=== PATIENT | male | born 1945 | race Two or more races ===

== ENCOUNTER 2019-01-17 01:06 | Inpatient (IN) | payer OTHER ==
[~2019-01-17] VITALS: Ht 172.7 cm; Wt 128.4 kg
--- NOTE | 2019-01-17 01:12 | NUR ---
PT [id number] C/O DIZZINESS X 1 HR, +HEADACH, PER EMS PT HYPERTENSIVE SBP 190S. PT AXO4. RESPIRATIONS EVEN AND UNLABORED. PT PUT ON THE ORTHOPEDIC SHOE MAKER AND PULSE OX. PT DIZZY AT THIS MOMENT. PT HYPERTENSIVE ON THE MONITOR.
[2019-01-17] MEDS ORDERED: hydrALAZINE HCL IV 20 MG VIAL ONE (01:27)
[2019-01-17] MEDS ORDERED: MECLIZINE HCL 25 MG TABLET ONE (01:28)
[2019-01-17 01:29] LABS: BASOPHILS % (AUTO) 0.5 % (0.0-2.0); EOSINOPHILS % (AUTO) 0.8 % (0.0-6.0); HEMATOCRIT 46 % (39-51); HEMOGLOBIN 15.6 g/dL (13.5-17.5); LYMPHOCYTES # (AUTO) 1.5 /CMM (0.8-4.8); LYMPHOCYTES % (AUTO) 22.3 % (20.0-44.0); MEAN CORPUSCULAR HGB CONC 34 g/dl (31.0-36.0); MEAN CORPUSCULAR VOLUME 90 fL (80-96); MONOCYTES # (AUTO) 0.4 /CMM (0.1-1.30); MONOCYTES % (AUTO) 6.7 % (2.0-12.0); NEUTROPHILS # (AUTO) 4.6 /CMM (1.8-8.9); NEUTROPHILS % (AUTO) 69.7 % (43.0-81.0); PLATELET COUNT (AUTO) 175 /CMM (150-450); RED BLOOD CELL COUNT(AUTO) 5.07 MIL/uL (4.5-6.0); WHITE BLOOD COUNT (AUTO) 6.6 K/uL (4.3-11.0)
[2019-01-17] MEDS ORDERED: MECLIZINE HCL 12.5 MG TABLET PO ONE (01:30)
[2019-01-17] MEDS ORDERED: hydrALAZINE HCL IV 20 MG VIAL IV ONE ×2 (01:30→02:00)
[2019-01-17 01:41] LABS: ALANINE AMINOTRANSFERASE 23 U/L (12-78); ALBUMIN 3.7 g/dL (3.4-5.0); ALKALINE PHOSPHATASE 92 U/L (46-116); ASPARTATE AMINOTRANSFERASE 14 U/L (15-37); BILIRUBIN,DIRECT 0.2 mg/dL (0.0-0.2); BILIRUBIN,TOTAL 0.6 mg/dL (0.2-1.0); CALCIUM, SERUM 9.1 mg/dL (8.5-10.1); CARBON DIOXIDE 35 mmol/L (21-32); CHLORIDE 107 mmol/L (98-107); GLUCOSE 178 mg/dL (74-106); POTASSIUM 4.5 mmol/L (3.5-5.1); SODIUM SERUM 144 mmol/L (136-145); TOTAL PROTEIN, SERUM 7.6 g/dL (6.4-8.2); UREA NITROGEN, BLOOD 16 mg/dL (7-18)
--- NOTE | 2019-01-17 02:00 | NUR ---
PT RESTING IN BED, NAD NOTED. WILL CONTINUE TO MONITOR.
[2019-01-17] MEDS ORDERED: ONDANSETRON HCL/PF 4 MG/2 ML VIAL ONE (02:23)
[2019-01-17] MEDS ORDERED: ONDANSETRON HCL/PF 4 MG/2 ML VIAL IV ONE (02:30)
--- NOTE | 2019-01-17 03:45 | NUR ---
PT UNABLE TO AMBULATE, PT STATES FEELING DIZZY. ER MD AWARE.
[2019-01-17] MEDS ORDERED: MECLIZINE HCL 12.5 MG TABLET PO PRN (04:00)
[2019-01-17] MEDS ORDERED: ACETAMINOPHEN 325 MG TABLET PO PRN (04:00)
[2019-01-17] MEDS ORDERED: HYDROCODONE/APAP 5/325MG 1 EACH TABLET PO PRN (04:00)
[2019-01-17] MEDS ORDERED: ONDANSETRON HCL/PF 4 MG/2 ML VIAL IVP PRN (04:00)
[2019-01-17] MEDS ORDERED: MAGNESIUM HYDROXIDE 30 ML UDC PO PRN (04:00)
[2019-01-17] MEDS ORDERED: Z GUARD REMEDY 2 OZ OINT TP PRN (04:00)
[2019-01-17] MEDS ORDERED: MAG HYDROX/AL HYDROX/SIMETH 30 ML UDC PO PRN (04:00)
--- NOTE | 2019-01-17 04:11 | NUR ---
REPORT GIVEN TO JAYSON SHIPMAN FOR [facility].
[2019-01-17 04:18] VITALS: BP 155/98
--- NOTE | 2019-01-17 04:18 | NUR ---
GLASS TINTERLOAN SECRETARY NOTES Received patient from ER via rney accompanied by 2 ER staff. Admitted to Tele 307-1 due to hypertensive urgency under the service of PATHOLOGY TECH Benjamin Oden. Transferred to bed comfortably. Admission routine done. Patient's belongings inventory completed by the assigned BANANA HANDLER. Initial skin assessment done: per patient he has no skin issues identified. On tele monitor with SR noted. With complaints of n/v, medicated with Zofran as ordered. Kept on bed clean, dry and comfortable. Call light within easy reach. On fall precautions. Will continue to monitor accordingly.
[2019-01-17] MEDS ORDERED: BLOOD PRESSURE MED (05:17)
[2019-01-17] MEDS ORDERED: METFORMIN (05:17)
[2019-01-17 06:43] VITALS: BP 155/98
--- NOTE | 2019-01-17 06:44 | NUR ---
IP TECHNOLOGY TRANSACTIONS ATTORNEY CLOSING NOTES Patient asleep on bed on Dave's position. On RA, no SOB/respiratory distress noted. Medicated for N/V, noted effective. Total episode of vomiting x2. All nursing needs attended. On tele monitor with SR noted. Kept on bed clean, dry and comfortable. Call light within easy reach. On fall precautions. Endorsed to the next shift.
[2019-01-17 08:00] VITALS: BP 137/77
--- NOTE | 2019-01-17 08:00 | NUR ---
AUTOMOBILE SEAT COVER INSTALLER AM NOTES Patient asleep but arousable on bed on Dave's position. On RA, no SOB/respiratory distress noted. Denies N/V,distress or any discomfort.noted effective.On tele monitor with SR noted. Kept on bed clean, dry and comfortable. For PT eval.Call light within easy reach. On fall precautions.
[2019-01-17] MEDS ORDERED: LIDOCAINE 0.5%-EPI 1:200,000 50 ML VIAL ONE (08:08)
[2019-01-17 08:56] VITALS: BP 137/77
[2019-01-17] MEDS ORDERED: LISINOPRIL (10MG) 10 MG TABLET PO SCH (09:00)
[2019-01-17] MEDS ORDERED: LORA10TA7 PO (09:38)
[2019-01-17] MEDS ORDERED: METF-440 PO (09:38)
[2019-01-17] MEDS ORDERED: CHOL100044 PO (09:38)
[2019-01-17] MEDS ORDERED: ATEN25TA PO (09:38)
[2019-01-17] MEDS ORDERED: LOSA1TAB42 PO (09:38)
[2019-01-17] MEDS ORDERED: CLOP75TA15 PO (09:38)
[2019-01-17] MEDS ORDERED: ATOR10TA PO (09:38)
[2019-01-17] MEDS ORDERED: POLY15DR40 EACHEYE (09:38)
[2019-01-17] MEDS ORDERED: POLYVINYL ALCOHOL 15 ML BOTTLE EACHEYE PRN (13:00)
[2019-01-17] MEDS ORDERED: LORATADINE 10 MG TABLET PO PRN (13:00)
--- NOTE | 2019-01-17 14:00 | NUR ---
PT'S DAUGHTER,DEENA (DENTIST)ARRIVED AND WAS REQUESTING FOR MRI STAT TO BE DONE.INFORMED JENNIFER FUNEZ WHO STATED THAT WE HAVE TO WAIT FOR THE NEUROLOGIST TO ORDER MRI IF NEEDED. DEENA WAS INSISTING FOR ME TO PUT THE ORDER IN MYSELF AND CAN'T WAIT FOR THE NEUROLOGIST.EXPLAINED TO THE FAMILY THAT WE CAN'T BYPASS OR PUT ORDERS IN FOR THE DOCTOR-WE HAVE TO WAIT FOR THE NEUROLOGIST TO SEE THE PT.NEURO ASSESSMENT DONE AND PT SPEAKS CLEARLY AND DOESN'T HAVE SLURRED SPEECH OR SPEECH DIFFICULTY NOTED.DENIES HEADACHE AT THIS TIME.PT HAS ATAXIC GAIT WHICH IS THE REASON FOR A NEUROLOGIST TO SEE HIM.PT IS ABLE TO AMBULATE WITH ASSIST USING FWW.ABLE TO MOVE BUE WNL WITH NO WEAKNESS NOTED.NO FACIAL DROOPING NOTED.INFORMED JENNIFER FUNEZ WHO SPOKED TO THE FAMILY. DAUGHTERDEENA INSISTS FOR PT TO GO AMA INSTEAD IF NO MRI STAT WILL BE DONE.JENNIFER FUNEZ AWARE.
--- NOTE | 2019-01-17 14:29 | NUR ---
DISCHARGED PT AMA ACCOMPANIED BY PT'S DAUGHTER,PHILIPY AND SON IN LAW VIA WHEELCHAIR.WITH STABLE V/S DENYING ANY PAIN OR DISTRESS.IV H/L TO LT AC AND TELE MONITOR REMOVED WITHOUT BLEEDING NOTED.
--- NOTE | 2019-01-17 14:30 | NUR ---
DR RAHMAN, NEUROLOGIST ARRIVED TO SEE PT AND MADE AWARE THAT PT WENT AMA WITH FAMILY AND CAN'T WAIT FOR HIS ARRIVAL.ALSO TOLD DR RAHMAN HOW PT'S DAUGHTER,DEENA WAS INSISTING FOR US TO PUT MRI STAT ORDER FOR THE PT WITHOUT DOCTOR'S ORDER AND THAT DEE DEE,HEAVY EQUIPMENT OPERATOR APPRENTICE EVEN SPOKE TO THE PT/FAMILY.
[2019-01-17] MEDS ORDERED: ATENOLOL 25 MG TABLET PO SCH (17:00)
[2019-01-18] MEDS ORDERED: ATORVASTATIN 10 MG TABLET PO SCH (09:00)
[2019-01-18] MEDS ORDERED: CHOLECALCIFEROL 1,000 UNIT TABLET (VIT D3) PO SCH (09:00)
[2019-01-18] MEDS ORDERED: CLOPIDOGREL BISULFATE 75 MG TABLET PO SCH (09:00)
== END 2019-01-17 14:34 | disposition left against medical advice (07) | DRG 92 ==
LOC: ER 01:08 → TELE 03:45
PROVIDERS: ADMIT Nurse Practitioner Acute Care; ATTEND Nurse Practitioner Acute Care
DX: R27.0 Ataxia, unspecified (principal); Z68.41 Body mass index [BMI] 40.0-44.9, adult; Z86.73 Personal history of transient ischemic attack (TIA), and cerebral infarction without residual deficits; Z83.3 Family history of diabetes mellitus; E11.9 Type 2 diabetes mellitus without complications; E66.9 Obesity, unspecified; H40.9 Unspecified glaucoma; I10 Essential (primary) hypertension; I16.0 Hypertensive urgency; Z80.3 Family history of malignant neoplasm of breast; Z87.891 Personal history of nicotine dependence; Z79.84 Long term (current) use of oral hypoglycemic drugs; Z79.899 Other long term (current) drug therapy
CPT/HCPCS: 36415; 70450-TC; 71045-TC; 80048-TC; 80076-TC; 82962-TC; 84484-TC; 85025-TC; 87081-TC; 93880-TC; 97116-TC; 97530-TC; G0378; J0360; J2405; J3490; J8597